=== PATIENT | male | born 1985 | race Caucasian/White ===

== ENCOUNTER 2018-02-13 06:41 | Day surgery (SDC) | payer OTHER ==
[~2018-02-13] VITALS: Ht 139.7 cm; Wt 39.5 kg
[~2018-02-13 06:41] MED LIST: PHEN-649 PO; RINGERS SOLUTION,LACTATED 1,000 ML IV ONE
[2018-02-13] MEDS ORDERED: 0.9% SODIUM CHLORIDE 10 ML VIAL IVP ONE (06:42)
[2018-02-13] MEDS ORDERED: LIDOCAINE HCL/PF 2% 5 ML VIAL IM ONE (06:42)
[2018-02-13] MEDS ORDERED: PROPOFOL 1% 20 ML VIAL IVP ONE (06:42)
[2018-02-13] MEDS ORDERED: DEXAMETHASONE SOD PHOS 4 MG/ML VIAL IVP ONE (06:42)
[2018-02-13] MEDS ORDERED: ONDANSETRON HCL 4 MG/2 ML VIAL IVP ONE (06:42)
[2018-02-13] MEDS ORDERED: RINGERS SOLUTION,LACTATED 1,000 ML IV ONE (07:00)
[2018-02-13 07:50] LABS: BASOPHILS % (AUTO) 0.2 % (0.0-2.0); EOSINOPHILS % (AUTO) 1.2 % (1.0-6.0); HEMATOCRIT 43.6 % (41-53); HEMOGLOBIN 14.8 g/dL (13.5-17.5); LYMPHOCYTES # (AUTO) 2.2 K/uL (1.0-4.8); LYMPHOCYTES % (AUTO) 25.4 % (22.0-44.0); MEAN CORPUSCULAR HEMOGLOBIN 31.9 pg (26.0-34.0); MEAN CORPUSCULAR HGB CONC 33.9 G/dL (31.0-37.0); MEAN CORPUSCULAR VOLUME 94 fL (80-100); MONOCYTES # (AUTO) 0.7 K/uL (0.1-1.0); MONOCYTES % (AUTO) 8.5 % (2.0-9.0); NEUTROPHILS # (AUTO) 5.5 K/uL (1.8-7.7); NEUTROPHILS % (AUTO) 64.7 % (40.0-70.0); PLATELET COUNT (AUTO) 215 K/uL (150-450); RED BLOOD CELL COUNT(AUTO) 4.64 MIL/uL (4.50-5.90); RED CELL DISTRIBUTION WIDTH 12.7 % (11.5-14.5)
[2018-02-13 08:02] LABS: PROTHROMBIN TIME 10.5 SEC (9.4-11.6)
[2018-02-13 08:17] LABS: ANION GAP 7 mmol/L (8-16); CALCIUM, TOTAL 9.3 mg/dL (8.8-10.5); CARBON DIOXIDE 31 mmol/L (22-29); CHLORIDE 103 mmol/L (98-107); CREATININE 0.52 mg/dL (0.60-1.30); GLOMERULAR FILTR. RATE CALC > 60 mL/min (>60); GLUCOSE,RANDOM 93 mg/dL (70-110); POTASSIUM 4.6 mmol/L (3.5-5.1); SODIUM SERUM 141 mmol/L (136-145); UREA NITROGEN, BLOOD 13 mg/dL (7-18)
[2018-02-13 08:23] LABS: ALANINE AMINOTRANSFERASE 23 U/L (12-78); ALBUMIN 4.1 g/dL (3.4-5.0); ALKALINE PHOSPHATASE 135 U/L (46-116); ASPARTATE AMINOTRANSFERASE 16 U/L (15-37); BILIRUBIN,TOTAL 0.2 mg/dL (0.1-1.0); PHENOBARBITAL 26 mcg/mL (15-40); TOTAL PROTEIN, SERUM 8.2 g/dL (6.4-8.2)
[2018-02-13] MEDS ORDERED: AMPICILLIN SODIUM 1 GM/VIAL ONE (09:35)
== END 2018-02-13 12:45 | disposition home or self-care (01) ==
LOC: SURGERY 06:41
PROVIDERS: ATTEND Dentist General Practice
DX: K05.30 Chronic periodontitis, unspecified (principal); G80.9 Cerebral palsy, unspecified; E03.9 Hypothyroidism, unspecified; E55.9 Vitamin D deficiency, unspecified; I45.19 Other right bundle-branch block; G40.909 Epilepsy, unspecified, not intractable, without status epilepticus; Z79.01 Long term (current) use of anticoagulants; Z98.890 Other specified postprocedural states
CPT/HCPCS: 36415; 41899; 71045; 80053; 80184; 85025; 85610; 85730; 93005; J0290; J1100; J2405; J2704; J3490; J7120

== ENCOUNTER 2023-08-31 06:37 | Day surgery (SDC) | payer OTHER, MEDICARE ==
[~2023-08-31] VITALS: Ht 137.2 cm; Wt 36.4 kg
[~2023-08-31 06:37] MED LIST changes: -PHEN-649 PO; +PHEN100T PO
[2023-08-31] MEDS ORDERED: DEXAMETHASONE SOD PHOS 4 MG/ML VIAL IVP ONE (06:38)
[2023-08-31] MEDS ORDERED: ONDANSETRON HCL 4 MG/2 ML VIAL IVP ONE (06:38)
[2023-08-31] MEDS ORDERED: ROCURONIUM BROMIDE 10 MG/ML 5 ML VIAL IVP ONE (06:38)
[2023-08-31] MEDS ORDERED: PROPOFOL 1% 20 ML VIAL IVP ONE (06:38)
[2023-08-31] MEDS ORDERED: SUGAMMADEX SODIUM 200 MG/2 ML VIAL IVP ONE (06:38)
[2023-08-31] MEDS ORDERED: RINGERS SOLUTION,LACTATED 1,000 ML IV ONE (06:44)
[2023-08-31 07:28] LABS: BASOPHILS % (AUTO) 0.4 % (0.0-2.0); EOSINOPHILS % (AUTO) 4.6 % (1.0-6.0); HEMATOCRIT 40.2 % (41-53); HEMOGLOBIN 13.3 g/dL (13.5-17.5); LYMPHOCYTES # (AUTO) 2.4 K/uL (1.0-4.8); LYMPHOCYTES % (AUTO) 37.9 % (22.0-44.0); MEAN CORPUSCULAR HEMOGLOBIN 32.5 pg (26.0-34.0); MEAN CORPUSCULAR HGB CONC 33.1 G/dL (31.0-37.0); MEAN CORPUSCULAR VOLUME 98 fL (80-100); MONOCYTES # (AUTO) 0.5 K/uL (0.1-1.0); MONOCYTES % (AUTO) 8.4 % (2.0-9.0); NEUTROPHILS % (AUTO) 48.7 % (40.0-70.0); PLATELET COUNT (AUTO) 178 K/uL (150-450); RED CELL DISTRIBUTION WIDTH 13.3 % (11.5-14.5); WHITE BLOOD COUNT (AUTO) 6.2 K/uL (4.5-11.0)
[2023-08-31] MEDS ORDERED: CHOL25TA4 PO (07:28)
[2023-08-31] MEDS ORDERED: OMEP20 PO (07:28)
[2023-08-31] MEDS ORDERED: PHEN20EL24 PO (07:28)
[2023-08-31 07:36] LABS: ANION GAP 7 mmol/L (8-16); CARBON DIOXIDE 32 mmol/L (22-29); CHLORIDE 101 mmol/L (98-107); CREATININE 0.54 mg/dL (0.60-1.30); GLOMERULAR FILTR. RATE CALC > 60 mL/min (>60); GLUCOSE,RANDOM 88 mg/dL (70-110); POTASSIUM 4.4 mmol/L (3.5-5.1); SODIUM SERUM 140 mmol/L (136-145); UREA NITROGEN, BLOOD 11 mg/dL (7-18)
[2023-08-31 07:40] LABS: INR 1.1 (0.9-1.1); PROTHROMBIN TIME 11.4 SEC (9.4-11.6)
[2023-08-31 07:42] LABS: ALANINE AMINOTRANSFERASE 41 U/L (12-78); ALBUMIN 3.9 g/dL (3.4-5.0); ALKALINE PHOSPHATASE 128 U/L (46-116); ASPARTATE AMINOTRANSFERASE 28 U/L (15-37); BILIRUBIN,TOTAL 0.4 mg/dL (0.1-1.0); TOTAL PROTEIN, SERUM 7.6 g/dL (6.4-8.2)
[2023-08-31] MEDS ORDERED: AMPICILLIN SODIUM 2 GM/NS 100 ML IV ONE (08:04)
[2023-08-31] MEDS ORDERED: OXYGEN THERAPY IH SCH (20:00)
== END 2023-08-31 11:15 | disposition home or self-care (01) ==
LOC: SURGERY 06:37
PROVIDERS: ATTEND Dentist General Practice
DX: K05.30 Chronic periodontitis, unspecified (principal); K02.9 Dental caries, unspecified; K03.6 Deposits [accretions] on teeth; G80.9 Cerebral palsy, unspecified; E03.9 Hypothyroidism, unspecified; Z79.01 Long term (current) use of anticoagulants; Z79.899 Other long term (current) drug therapy; Z98.890 Other specified postprocedural states; G40.909 Epilepsy, unspecified, not intractable, without status epilepticus
CPT/HCPCS: 41899; 80053; 85025; 85610; 85730; 36415; 93005; J0290; J2704; J1100; J2405; J3490; Q9967; J7120